=== PATIENT | female | born 1965 | race Caucasian/White ===

== ENCOUNTER 2020-03-12 04:52 | Emergency (ER) | payer SELFPAY ==
[~2020-03-12] VITALS: Ht 160 cm; Wt 77.7 kg
[2020-03-12 04:58] VITALS: Ht 160 cm; Wt 77.7 kg
[2020-03-12 07:30] LABS: microscopic required? NO
[2020-03-12 07:41] LABS: BASOPHIL % 0.2 % (0-2); PLATELET COUNT 224 x10^3mcL (130-400); RED CELL DISTRIBUTION WIDTH 14.3 % (11.5-14.5)
[2020-03-12 07:52] LABS: CALCIUM 9.2 mg/dL (8.5-10.1); CARBON DIOXIDE 22.6 mmol/L (21-32); CHLORIDE SERUM 101 mmol/L (98-107); GFR1 > 60 mL/min; GLUCOSE SERUM 102 mg/dL (74-106); POTASSIUM SERUM 4.3 mmol/L (3.5-5.1); SODIUM SERUM 134 mmol/L (136-145)
[2020-03-12 07:55] LABS: UA SPECIFIC GRAVITY >=1.030 (1.005-1.035); urine erythrocyte NEGATIVE (NEGATIVE)
[2020-03-12 07:56] LABS: ALBUMIN 3.5 g/dL (3.4-5.0); ALKALINE PHOSPHATASE 161 U/L (46-116); ALT/SGPT 93 U/L (14-59); AST/SGOT 162 U/L (15-37); BILIRUBIN TOTAL 0.31 mg/dL (0.20-1.00); TOTAL PROTEIN, SERUM 7.3 g/dL (6.4-8.2); TRIGLYCERIDES 125 mg/dL (<150)
[2020-03-12 07:59] LABS: CHOLESTEROL 217 mg/dL (<200); CHOLESTEROL/HDL RATIO 3.4; HDL CHOLESTEROL 63 mg/dL (40-60)
[2020-03-12 10:30] VITALS: BP 123/68
== END 2020-03-12 10:30 | disposition home or self-care (01) ==
LOC: ED 04:52
PROVIDERS: Specialist
DX: R10.13 Epigastric pain (principal); J45.909 Unspecified asthma, uncomplicated; Z90.49 Acquired absence of other specified parts of digestive tract
CPT/HCPCS: J3490; J7030